=== PATIENT | male | born 1940 | race Hispanic/Latino ===

== ENCOUNTER 2021-10-20 10:33 | Day surgery (SDC) | payer MEDICARE ==
[~2021-10-20 10:33] MED LIST: SODIUM CHLORIDE 0.9% 1000 ML 1,000 ML IV SCH
--- NOTE | 2021-10-20 11:23 | Anesthesia Day of Surgery ---
Anesthesia Day of Surgery - Day of Surgery Patient Examined: Yes Patient H&P Reviewed: Yes Patient is NPO: Yes Cardiac Clearance: Yes (Moderate Risk)
--- NOTE | 2021-10-20 11:25 | Anesthesia Consultation ---
Anesthesia Consult and Med Hx Date of service: 10/20/21 - Airway Anesthetic Teeth Evaluation: Chipped, Partials ROM Head & Neck: Adequate Mental/Hyoid Distance: Adequate Mallampati Class: Class II Intubation Access Assessment: Probably Good - Pre-Operative Health Status ASA Pre-Surgery Classification: ASA3 Proposed Anesthetic Plan: MAC - Pulmonary Hx Respiratory Symptoms: No (+2FS) - Cardiovascular System Hx Hypertension: Yes Hx Coronary Artery Disease: Yes (Had CABG 1993) - Gastrointestinal Hx Ulcer: Yes Hx Gastroesophageal Reflux Disease: Yes - Other Systems Hx Obesity: No
[2021-10-20] MEDS ORDERED: propofoL 200 MG/20 ML VIAL IV ONE ×3 (12:16→13:05)
[2021-10-20] MEDS ORDERED: LIDOCAINE MPF (2%) 20 MG/1 ML VIAL 5 ML ONE (12:16)
[2021-10-20] MEDS ORDERED: PHENYLEPHRINE/NS 1,000 MCG/10 ML SYRINGE (OR USE) IV ONE (12:39)
--- NOTE | 2021-10-20 13:24 | Procedure Note ---
Date of procedure: 10/20/21 Pre-op diagnosis: Anemia Post-op diagnosis: other (No Upper or Lower GI bleeding noted/No Peptic Ulcer Disease noted/ Mild to moderate Erosive Esophagitis/ Gastritis/ Small,Hiatal Hernia/Extensive,Diverticular disease/ Solitary,Recto-Sigmoid Polyp (removed by cold snare polypectomy)/ Minor,Internal Hemorrhoid) Procedure: EGD with Biopsy/ Colonoscopy withCold Snare Polypectomy ad use of Cold Biopsy to retrieve the Polyp Anesthesia: MAC Surgeon: PAIGE VIDALES Estimated blood loss: minimal Pathology: list Specimen disposition: to lab Condition: stable Disposition: same day (Encourage fiber itake and treat with PPI; avoid aspirin and NSAID for 4 days, otherwise resume home medication and F/U in 1 to 2 weeks ([phone]).)
--- NOTE | 2021-10-20 13:28 | Operative Report ---
DATE OF SURGERY: 10/20/2021 INDICATIONS: This is an 80-year-old white male who has been having anemia and was noted to have some heme-positive stools. EGD was done to make sure there was not any significant upper GI pathology present that would account for the patient's anemia. DESCRIPTION OF PROCEDURE: Procedure was done after getting informed consent with MAC anesthesia. The instrument was passed through the hypopharynx into the esophagus, which showed [id number] distal erosive esophagitis. Photodocumentation and biopsy was obtained to assess for the severity of the erosive esophagitis. The stomach showed a small hiatal hernia on the retroverted view and biopsy was done from the gastric antrum and the gastric body and angular incisura to rule out for H. pylori and atrophic gastritis. The pylorus is patent. The duodenum in the first and second portion appeared normal. ASSESSMENT: Anemia, no active upper gastrointestinal bleeding noted. No peptic ulcer disease noted. Gijg-im-[id number] distal erosive esophagitis, small hiatal hernia, gastritis. PLAN: Treat the patient with PPI, have the patient avoid aspirin and aspirin-related products for the next few days and to do a colonoscopy for further assessment of the source of the patient's anemia. Procedure was done in the GI lab with assistance of the GI lab team, which included the GI nurse, the multi craft maintenance technician and with assistance of anesthesia. TID: [id number] RECEIPT: [id number] CHILO/GLO
--- NOTE | 2021-10-20 13:50 | Operative Report ---
DATE OF SURGERY: 10/20/2021 PROCEDURE: Colonoscopy. INDICATIONS: This is an 80-year-old white male who was noted to be anemic. EGD did not show any evidence of any peptic ulcer disease or any evidence of active upper GI bleeding. It did show [id number] distal erosive esophagitis, gastritis and a small hiatal hernia. DESCRIPTION OF PROCEDURE: Colonoscopy was attempted with regular adult colonoscope. It could only be introduced until up to the sigmoid. Further introduction was not possible because of tortuous colon. However, as the scope was being withdrawn, there was a 7-8 mm polyp noted in the rectosigmoid area that was removed by snare polypectomy and retrieved with biopsy forceps with minimal bleeding. A pediatric scope was then used. It was then passed through the rectum and onto the cecum, which was identified with ileocecal valve and the appendiceal orifice. Visualization was fair to good. There was extensive diverticular disease noted throughout the colon involving the proximal transverse as well as the left colon, some of which were very deep. It is possible that the patient may have had some bleeding from the diverticula before, which may have accounted for the patient's anemia, but there was no bleeding at present and the rectum showed some minor internal hemorrhoid. ASSESSMENT: Anemia, no active lower gastrointestinal bleeding noted; extensive diverticular disease noted throughout the colon; solitary rectosigmoid polyp that was removed by cold snare polypectomy and minor internal hemorrhoid. PLAN: To encourage the patient to take fiber supplements, avoid aspirin and aspirin-related products. The patient will be treated with PPI because of the EGD findings of esophagitis and gastritis and asked to follow up in the office in 1-2 weeks' time. Procedure was done in the GI lab with assistance of the GI lab team, which included the GI nurse, the technology instructor and with assistance of Anesthesia. TID: [id number] RECEIPT: [id number] CHILO/CYN
[2021-10-20 16:27] VITALS: BP 136/79
--- NOTE | 2021-10-20 16:49 | Post Anesthesia Evaluation ---
- Post Anesthesia Evaluation Patient Participated: Yes Airway Patent: Yes Stable Respiratory Function: Yes Nausea/Vomiting: No Temp > 96.8F: Yes Pain Manageable: Yes Adequeate Hydration: Yes Anesthesia Complications: No Block Receding Appropriately: Not Applicable Patient on Ventilator: No
== END 2021-10-20 15:15 | disposition home or self-care (01) ==
LOC: GIO 10:33 → EDSTATUS 13:00 → GIO 15:15
DX: D64.9 Anemia, unspecified (principal); K63.5 Polyp of colon; K21.00 Gastro-esophageal reflux disease with esophagitis, without bleeding; K57.30 Diverticulosis of large intestine without perforation or abscess without bleeding; K64.8 Other hemorrhoids; K44.9 Diaphragmatic hernia without obstruction or gangrene; K29.60 Other gastritis without bleeding; I10 Essential (primary) hypertension; I25.10 Atherosclerotic heart disease of native coronary artery without angina pectoris; Z79.899 Other long term (current) drug therapy; Z95.1 Presence of aortocoronary bypass graft; Z98.890 Other specified postprocedural states
CPT/HCPCS: 43239; 45385; 88305; 88312; 88342; J2370; J2704; J3490; J7030; J7120; Q0162